=== PATIENT | male | born 1985 | race Caucasian/White ===

== ENCOUNTER 2016-12-01 20:17 | Emergency (ER) | payer SELFPAY ==
[~2016-12-01] VITALS: Ht 182.9 cm; Wt 72.7 kg
[2016-12-01 20:20] VITALS: BP 136/78; RESP 16; O2SAT 98
--- NOTE | 2016-12-01 20:26 | ED.REPORT ---
HPI-Eye Problem Date of Service Dec 01, 2016 ED Provider: Adrián Damon MD Patient is a 30 year old male who presents to the ED due to a foreign body in his eye. He reports that he was hammering steel 2 days ago when he felt something fly into his eye. The patient then woke up today with irritation and redness of his right eye. He reports he able to see but it is difficult due to tearing from the foreign body. Nursing Notes Stated Complaint: LEFT EYE INJURY Chief Complaint: ENT & Mouth Nursing Notes Reviewed: Yes Allergies: Coded Allergies: No Known Allergies (Unverified , 12/01/16) General Time Seen by MD: 20:26 Chief Complaint Right eye affected Hx Obtained From: Patient Arrived By: Walk-in Sudden in Onset?: Yes Onset Occurred: 2 days ago Symptom Duration: Since onset Caused by: Foreign body in eye, Hammering Location: : Eye right Quality: Painful Radiation: Does not radiate Related History: Denies: Contact lens use Recent Healthcare: No recent doctor visit, No recent hospitalization Similar Sx Previous: No Past Medical History Past Medical History none reported Smoking History Unknown if Ever Smoker Ambulatory Status Independent Review of Systems Constitutional: Denies: Chills, Fever Eyes: Reports: Blurred right, Eye pain right, Redness right Skin: Denies Itching, Denies Rash Complete sys rev & neg: except as marked. Respiratory: Denies: Non-productive cough, Shortness of breath Physical Exam Initial Vital Signs Vital Signs (First) Date Time Temp Pulse Resp B/P Pulse Ox O2 Delivery O2 Flow Rate FiO2 12/01/16 20:20 36.7 97 16 136/78 98 Room Air Initial VS: Reviewed Head / Eyes: Atraumatic, Normocephalic rust ring about the right lateral eye, overlying the iris no other foreign body conjunctival injection no corneal abrasion General/Constitutional: Awake, Alert, No acute distress Skin: Atraumatic, Color NL, No rash, Warm, Dry Neurologic: Oriented X3, Speech NL, No motor deficits, No sensory deficits Respiratory / Chest: Atraumatic, Breath sounds NL, Breath sounds = bilat, No respiratory distress Cardiovascular: Heart rate NL, Regular rhythm, Heart sounds NL, No gallop, No murmurs, No rubs Psychiatric: Affect NL, Mood NL Re-Eval/Medical Decision Med Decision/Clinical Course Patient is a 30 year old male who presents to the ED due to a foreign body in his eye. He reports that he was hammering steel 2 days ago when he felt something fly into his eye. The patient then woke up today with irritation and redness of his right eye. He reports he able to see but it is difficult due to tearing from the foreign body. There are no emergency department the patient is afebrile stable vital signs and examination as above. His visual acuity is grossly normal. Examination reveals conjunctival injection and a corneal rust ring. Examination reveals no additional foreign bodies, fluorescein uptake or corneal abrasions. He has a negative Kathi sign. Pupils are normal. Patient will be prescribed erythromycin ointment. He has been referred to ophthalmology and will call first thing on Sunday morning to arrange for an appointment. He is advised to return immediately should he develop worsening eye pain, blurry vision, purulent drainage or any other concerning signs or symptoms. I suspect that he does have a metallic foreign body embedded in his cornea however is not appear to be easily removed in the emergency department on a feel that he would be best treated by an submarine element coordinator. There is no evidence of penetrating globe injury as his vision is normal and he has a negative Kathi sign. Prior to discharge follow-up and return precautions were reviewed in detail with the patient who verbalized understanding and agreement with the plan. The patient was discharged in stable condition. Re-Evaluation/Progress : Time of Eval: 21:28 Re-Evaluation/Progress Note: Discussed plan for discharge. Patient understands and agrees to plan. All questions were addressed. Counseled Regarding: Diagnosis, Need for follow-up, When/why to return to ED Discharge & Departure Primary Impression: Foreign body in eye Encounter type: initial encounter Laterality: right Qualified Code: T15.91XA - Foreign body on external eye, part unspecified, right eye, initial encounter Additional Impressions: Acute right eye pain Corneal rust ring Laterality: right Qualified Code: H18.891 - Other specified disorders of cornea, right eye Disposition: Home Discharge Condition All VS Reviewed: Yes Condition: Stable Patient Instructions: Eye Foreign Body (ED) Additional Instructions: Thank you for seeking care at the emergency room. Our primary goal today in the ED was to evaluate you for any life-threatening conditions. Your evaluation was reassuring. Use the antibiotic ointment 4x a day to help with your eye pain. Take the pain medication, Baring as prescribed. You should follow-up with an submarine element coordinator this week to have your eye further evaluated and have the foreign body removed. You should return to the ED immediately if you develop increasing pain or loss of vision or any other concerning signs or symptoms. Thank you for letting us partake in your care today. You have been prescribed a narcotic for pain relief. These drugs are usually combined with acetaminophen (Tylenol#3, Percocet, Darvocet, Anexsia, Vicodin) or aspirin (Empirin#3, Percodan, Synalogs-DC) for increased effect. Narcotics act on the central nervous system to reduce pain; they also impair mental alertness and physical abilities. We advise you not to drink alcohol, drive a car, or operate dangerous equipment when you are taking these drugs. You can lessen stomach irritation from your medicine by taking it with meals or a full glass of water. Common side effects of narcotics are: Nausea and vomiting, heartburn, constipation, dizziness, sleepiness, and mood changes. If you have bothersome side effects or symptoms of an allergic reaction (itching, hives, rash), stop taking your medicine and call your doctor or the emergency room right away. Please keep your narcotic medicine well out of the reach of children. Referrals: [facility] Optometry [facility] Scribe Attestation Portions of this note were transcribed by Yulia Asencio. I, Dr. Damon personally performed the history, physical exam and medical decision-making; I reviewed and confirmed the accuracy of the information in the transcribed note. Signed by: Reynaldo Louis, 12/01/16 and 2129 Adrián Damon MD Dec 01, 2016 20:26 Elizabeth Asencio Dec 01, 2016 21:22
[2016-12-01] MEDS ORDERED: Tetracaine 0.5% 4 mL Ophthalmic Solution BOTH_EYES ONE (20:30)
[2016-12-01] MEDS ORDERED: Fluorescein 0.6 mg Ophthalmic Strip BOTH_EYES ONE (20:30)
[2016-12-01] MEDS ORDERED: _HYDROcodone/APAP 5-325 mg Tablet PO PRN (21:35)
[2016-12-01 22:15] VITALS: BP 136/78; PULSE 97; RESP 16; O2SAT 98
[2016-12-02] MEDS ORDERED: _Erythromycin 0.5% Oph Oint 3.5 gm AFFECT_EYE SCH (06:30)
== END 2016-12-01 22:04 | disposition home or self-care (01) ==
LOC: SED 20:17
DX: T15.91XA Foreign body on external eye, part unspecified, right eye, initial encounter (principal); X58.XXXA Exposure to other specified factors, initial encounter; Y92.9 Unspecified place or not applicable; Y93.89 Activity, other specified; Y99.8 Other external cause status; H57.11 Ocular pain, right eye; H18.891 Other specified disorders of cornea, right eye